=== PATIENT | female | born 1985 | race American Indian/Alaskan Native ===

== ENCOUNTER 2016-09-05 10:53 | Emergency (ER) | payer SELFPAY ==
[2016-09-05 12:21] LABS: Basophils % (Auto) 0.9 % (0.0-1.8); Eosinophils % (Auto) 3.9 % (0.0-4.3); Hemoglobin 12.2 gm/dl (10.1-14.3); Mean Corpuscular HGB Conc 33 % (30-34); Mean Corpuscular Hemoglobin 26 pg (28-32); Mean Corpuscular Volume 80 fl (79-97); Platelet Count 243 K/mm3 (140-440); Red Blood Count 4.64 M/mm3 (3.65-5.03); White Blood Count 7.7 K/mm3 (4.5-11.0)
[2016-09-05 12:43] LABS: Alanine Aminotransferase 15 units/L (7-56); Albumin 3.9 g/dL (3.9-5); Albumin/Globulin Ratio 1.2 %; Alkaline Phosphatase 67 units/L (35-129); Anion Gap 17 mmol/L; BUN/Creatinine Ratio 18.75; Bilirubin,Total < 0.2 mg/dL (0.1-1.2); Blood Urea Nitrogen 15 mg/dL (7-17); Calcium 8.7 mg/dL (8.4-10.2); Carbon Dioxide 25 mmol/L (22-30); Chloride 103.1 mmol/L (98-107); Glucose 85 mg/dL (65-100); Lipase 40 units/L (13-60); Potassium 4.6 mmol/L (3.6-5.0); Sodium 140 mmol/L (137-145); Total Protein 7.2 g/dL (6.3-8.2)
[2016-09-05 15:51] LABS: Bilirubin,Urine NEG (Negative); Blood,Urine NEG (Negative); Ketones,Urine NEG (Negative); Leukocyte Esterase,Urine NEG (Negative); Mucus,Urine FEW /HPF; Nitrite,Urine NEG (Negative); Protein,Urine <15 mg/dL mg/dL (Negative); Urobilinogen,Urine < 2.0 mg/dL (<2.0)
[2016-09-05] MEDS ORDERED: NACL 0.9% 1000 ML 1,000 ML IV ONE (16:02)
[2016-09-05] MEDS ORDERED: TORADOL IV ONE (16:02)
[2016-09-05] MEDS ORDERED: NACL ONE (16:13)
[2016-09-05] MEDS ORDERED: BENADRYL ONE (16:21)
[2016-09-05] MEDS ORDERED: BENADRYL IV ONE (16:23)
--- NOTE | 2016-09-05 17:27 | Cat Scan Report ---
FINAL REPORT EXAM: CT ABDOMEN PELVIS W CON HISTORY: rlq pain TECHNIQUE: Serial axial images through the abdomen and pelvis during intravenous administration of contrast with coronal and sagittal reconstruction. PRIORS: None. FINDINGS: There is subtle heterogeneous density in the distal aspect of esophagus. Visualized portion of the lung bases are clear. No pleural effusion is seen. No focal hepatic lesion is identified. The gallbladder, pancreas, spleen and adrenal glands appear within normal limits. Kidneys appear normal. Bladder appears normal. No gross abnormality is seen in uterus. There appears to be a collapsing cyst in the left ovary. The appendix appears normal. No gross bowel abnormality is identified. Trace amount of low-density free fluid is seen in the dependent portion of the pelvis. Degenerative changes are seen in the spine. IMPRESSION: 1. Appendix appears within normal limits. 2. There appears to be a collapsing cyst in the left ovary. 3. Small amount of low-density free fluid is seen in the dependent portion of the pelvis. This is a nonspecific finding. It may be physiologic. 4. Subtle heterogeneous density is noted in the lumen of the distal esophagus. This could indicate reflux.
--- NOTE | 2016-09-05 18:12 | Emergency Department Report ---
ED General Adult HPI - General Chief complaint: Abdominal Pain Stated complaint: R SIDE AND LOWER BACK PAIN Time Seen by Provider: 09/05/16 15:12 Source: patient Mode of arrival: Ambulatory Limitations: No Limitations - History of Present Illness Initial comments: 30 year old female presents with right sided flank pain and RLQ pain with associated nausea since last night. states that it is an aching pain. denies fever, sore throat, cough, cp, sob. denies taking medication. Severity scale (0 -10): 7 - Related Data Previous Rx's Medication Instructions Recorded Last Taken Type Ibuprofen [Motrin] 800 mg PO Q8HR PRN #20 tablet 09/05/16 Unknown Rx Ondansetron [Zofran Odt] 4 mg PO Q8HR #14 tab.rapdis 09/05/16 Unknown Rx Allergies Allergy/AdvReac Type Severity Reaction Status Date / Time iodine AdvReac Rash Verified 09/05/16 11:41 ED Review of Systems ROS: Stated complaint: R SIDE AND LOWER BACK PAIN Other details as noted in HPI Constitutional: denies: chills, fever Eyes: denies: eye pain, eye discharge, vision change ENT: denies: ear pain, throat pain Respiratory: denies: cough, shortness of breath, wheezing Cardiovascular: denies: chest pain, palpitations Endocrine: no symptoms reported Gastrointestinal: abdominal pain, nausea. denies: diarrhea Genitourinary: denies: urgency, dysuria, discharge Musculoskeletal: denies: back pain, joint swelling, arthralgia Skin: denies: rash, lesions Neurological: denies: headache, weakness, paresthesias Psychiatric: denies: anxiety, depression Hematological/Lymphatic: denies: easy bleeding, easy bruising ED Past Medical Hx - Past Medical History Additional medical history: PCOS - Surgical History Additional Surgical History: X 2. T & A. SWEAT GLANDS REMOVED - Medications Home Medications: Home Medications Medication Instructions Recorded Confirmed Last Taken Type Ibuprofen [Motrin] 800 mg PO Q8HR PRN #20 tablet 09/05/16 Unknown Rx Ondansetron [Zofran Odt] 4 mg PO Q8HR #14 tab.rapdis 09/05/16 Unknown Rx ED Physical Exam - General Limitations: No Limitations General appearance: alert, in no apparent distress - Head Head exam: Present: atraumatic, normocephalic - Eye Eye exam: Present: normal appearance - ENT ENT exam: Present: mucous membranes moist - Neck Neck exam: Present: normal inspection - Respiratory Respiratory exam: Present: normal lung sounds bilaterally. Absent: respiratory distress - Cardiovascular Cardiovascular Exam: Present: regular rate, normal rhythm. Absent: systolic murmur, diastolic murmur, rubs, gallop - GI/Abdominal GI/Abdominal exam: Present: soft, tenderness (RLQ), normal bowel sounds, other ( right CVA tenderness). Absent: distended, guarding, rebound, rigid - Extremities Exam Extremities exam: Present: normal inspection - Back Exam Back exam: Present: normal inspection - Neurological Exam Neurological exam: Present: alert, oriented X3 - Psychiatric Psychiatric exam: Present: normal affect, normal mood - Skin Skin exam: Present: warm, dry, intact, normal color. Absent: rash ED Course Vital Signs 09/05/16 11:41 Temperature 98.1 F Pulse Rate 71 Respiratory 19 Rate Blood Pressure 120/81 O2 Sat by Pulse 97 Oximetry ED Medical Decision Making - Lab Data Result diagrams: 09/05/16 12:08 09/05/16 12:08 Vital Signs 09/05/16 11:41 Temperature 98.1 F Pulse Rate 71 Respiratory 19 Rate Blood Pressure 120/81 O2 Sat by Pulse 97 Oximetry Laboratory Results - last 24 hr 09/05/16 09/05/16 09/05/16 12:08 12:08 12:08 WBC 7.7 RBC 4.64 Hgb 12.2 Hct 37.0 MCV 80 MCH 26 L MCHC 33 RDW 14.0 Plt Count 243 Lymph % (Auto) 28.6 [place] % (Auto) 6.6 Eos % (Auto) 3.9 Baso % (Auto) 0.9 Lymph # 2.2 [place] # 0.5 Eos # 0.3 Baso # 0.1 Seg Neutrophils % 60.0 Seg Neutrophils # 4.6 Sodium 140 Potassium 4.6 Chloride 103.1 Carbon Dioxide 25 Anion Gap 17 BUN 15 Creatinine 0.8 Estimated GFR > 60 BUN/Creatinine Ratio 18.75 Glucose 85 Calcium 8.7 Total Bilirubin < 0.2 AST 13 ALT 15 Alkaline Phosphatase 67 Total Protein 7.2 Albumin 3.9 Albumin/Globulin Ratio 1.2 Lipase 40 HCG, Qual Negative Urine Color Urine Turbidity Urine pH Ur Specific [place] Urine Protein Urine Glucose (UA) Urine Ketones Urine Blood Urine Nitrite Urine Bilirubin Urine Urobilinogen Ur Leukocyte Esterase Urine WBC (Auto) Urine RBC (Auto) U Epithel Cells (Auto) Urine Mucus 09/05/16 15:15 WBC RBC Hgb Hct MCV MCH MCHC RDW Plt Count Lymph % (Auto) [place] % (Auto) Eos % (Auto) Baso % (Auto) Lymph # [place] # Eos # Baso # Seg Neutrophils % Seg Neutrophils # Sodium Potassium Chloride Carbon Dioxide Anion Gap BUN Creatinine Estimated GFR BUN/Creatinine Ratio Glucose Calcium Total Bilirubin AST ALT Alkaline Phosphatase Total Protein Albumin Albumin/Globulin Ratio Lipase HCG, Qual Urine Color Yellow Urine Turbidity Cloudy Urine pH 6.0 Ur Specific [place] 1.024 Urine Protein <15 mg/dl Urine Glucose (UA) Neg Urine Ketones Neg Urine Blood Neg Urine Nitrite Neg Urine Bilirubin Neg Urine Urobilinogen < 2.0 Ur Leukocyte Esterase Neg Urine WBC (Auto) 2.0 Urine RBC (Auto) 3.0 U Epithel Cells (Auto) 29.0 H Urine Mucus Few - Radiology Data interpreted by me: patient CT abdomen pelvis is negative. NAD at this time. - Medical Decision Making negative CT. states relief with medication in the ED. VSS for DC. - Differential Diagnosis appendicitis, kidney stone Critical care attestation.: If time is entered above; I have spent that time in minutes in the direct care of this critically ill patient, excluding procedure time. ED Disposition Clinical Impression: Right flank pain, RLQ abdominal pain, Unspecified abdominal pain Disposition: DISCHARGED TO HOME OR SELFCARE Is pt being admited?: No Does the pt Need Aspirin: No Condition: Good Instructions: Abdominal Pain (ED) Prescriptions: Ibuprofen [Motrin] 800 mg PO Q8HR PRN #20 tablet PRN Reason: Pain Ondansetron [Zofran Odt] 4 mg PO Q8HR #14 tab.rapdis Referrals: PRIMARY CARE, [Primary Care Provider] - 3-5 Days Forms: Work/School Release Form(ED) Time of Disposition: 18:13
[2016-09-05 18:47] VITALS: BP 113/61
== END 2016-09-05 18:40 | disposition home or self-care (01) ==
LOC: ED 10:53
DX: R10.31 Right lower quadrant pain (principal); E28.2 Polycystic ovarian syndrome; Z88.8 Allergy status to other drugs, medicaments and biological substances
CPT/HCPCS: 36415; 74177; 80053; 81001; 83690; 84703; 85025; 96361; 96374; 96375; 99284; J1200; J1885; J7030; Q9967; 96366

== ENCOUNTER 2019-07-02 21:20 | Emergency (ER) | payer SELFPAY ==
[2019-07-02 21:29] VITALS: BP 133/78
[2019-07-03] MEDS ORDERED: SODIUM CHLORIDE 0.9% 1000 ML 1,000 ML IV ONE (00:49)
--- NOTE | 2019-07-03 00:53 | Emergency Department Report ---
ED Headache HPI - General Chief Complaint: Headache Stated Complaint: HEADACHE NAUSEA Time Seen by Provider: 07/03/19 00:10 - History of Present Illness Initial Comments: 33-year-old -[place] female patient complains of headache 3 days. She states the headache is frontal in feels like a pressure. She admits to history of migraines about 6 years ago for which she saw neurology and had steroid injections resolved her migraines. She states this does not feel like her past migraines in his concern for something more. She rates her pain as a 9/10 in severity. She denies any vision changes, numbness/tingling, sensitivity to light or sound, head injury, or nausea/vomiting. Patient states ibuprofen and Tylenol are not helping and headache worsened today. Timing/Duration: constant, increasing Quality: severe, pressure Head Injury Location: global Recent Head Trauma: no recent headache/trauma Associated Symptoms: denies symptoms Allergies/Adverse Reactions: Allergies iodine Adverse Reaction (Verified 09/05/16 11:41) Rash Home Medications: Ambulatory Orders Ibuprofen [Motrin] 800 mg PO Q8HR PRN #20 tablet 09/05/16 Ondansetron [Zofran Odt] 4 mg PO Q8HR #14 tab.rapdis 09/05/16 Butalb/Acetaminophen/Caffeine [Fioricet 50-300-40 mg CAP] 1 cap PO Q8HR PRN #6 cap 07/03/19 ED Review of Systems ROS: Stated complaint: HEADACHE NAUSEA Other details as noted in HPI Comment: All other systems reviewed and negative Neurological: as per HPI ED Past Medical Hx - Past Medical History Previous Medical History?: Yes Hx Headaches / Migraines: Yes Additional medical history: PCOS - Surgical History Additional Surgical History: X 2. T & A. SWEAT GLANDS REMOVED - Social History Smoking Status: Never Smoker Substance Use Type: None - Medications Home Medications: Home Medications Medication Instructions Recorded Confirmed Last Taken Type Ibuprofen [Motrin] 800 mg PO Q8HR PRN #20 tablet 09/05/16 Unknown Rx Ondansetron [Zofran Odt] 4 mg PO Q8HR #14 tab.rapdis 09/05/16 Unknown Rx Butalb/Acetaminophen/Caffeine 1 cap PO Q8HR PRN #6 cap 07/03/19 Unknown Rx [Fioricet 50-300-40 mg CAP] ED Physical Exam - General Limitations: No Limitations General appearance: alert, in no apparent distress - Head Head exam: Present: atraumatic, normocephalic - Eye Eye exam: Present: normal appearance, PERRL. Absent: scleral icterus - Neck Neck exam: Present: normal inspection. Absent: tenderness - Respiratory Respiratory exam: Present: normal lung sounds bilaterally. Absent: respiratory distress - Cardiovascular Cardiovascular Exam: Present: regular rate, normal rhythm. Absent: systolic murmur, diastolic murmur, rubs, gallop - Extremities Exam Extremities exam: Present: full ROM - Neurological Exam Neurological exam: Present: alert, oriented X3, CN II-XII intact, normal gait. Absent: motor sensory deficit - Expanded Neurological Exam Expanded Speech: Present: fluid speech Cerebellar function: Finger to Nose: Normal, Heel to [place]: Normal, [place]: Normal Upper motor neuron: Pronator Drift: Normal Sensory exam: Upper Extremity Light Touch: Normal, Lower Extremity Light Touch: Normal Motor strength exam: RUE: 5, LUE: 5, RLE: 5, LLE: 5 - Psychiatric Psychiatric exam: Present: normal affect, normal mood - Skin Skin exam: Present: warm, dry, intact, normal color. Absent: rash ED Course Vital Signs 07/02/19 07/03/19 07/03/19 21:26 02:58 04:01 Temperature 98.4 F Pulse Rate 81 80 Respiratory 14 18 16 Rate Blood Pressure 133/78 O2 Sat by Pulse 97 100 Oximetry ED Medical Decision Making - Lab Data Result diagrams: 07/03/19 00:54 07/03/19 00:54 Lab Results 07/03/19 07/03/19 07/03/19 Range/Units 00:54 00:54 00:54 WBC 7.7 (4.5-11.0) K/mm3 RBC 4.63 (3.65-5.03) M/mm3 Hgb 12.3 (10.1-14.3) gm/dl Hct 37.3 (30.3-42.9) % MCV 81 (79-97) fl MCH 26 L (28-32) pg MCHC 33 (30-34) % RDW 14.4 (13.2-15.2) % Plt Count 261 (140-440) K/mm3 Lymph % (Auto) 24.3 (13.4-35.0) % [place] % (Auto) 5.8 (0.0-7.3) % Eos % (Auto) 2.6 (0.0-4.3) % Baso % (Auto) 0.6 (0.0-1.8) % Lymph # 1.9 (1.2-5.4) K/mm3 [place] # 0.4 (0.0-0.8) K/mm3 Eos # 0.2 (0.0-0.4) K/mm3 Baso # 0.0 (0.0-0.1) K/mm3 Seg Neutrophils % 66.7 (40.0-70.0) % Seg Neutrophils # 5.2 (1.8-7.7) K/mm3 Sodium 140 (137-145) mmol/L Potassium 4.4 (3.6-5.0) mmol/L Chloride 105.5 (98-107) mmol/L Carbon Dioxide 28 (22-30) mmol/L Anion Gap 11 mmol/L BUN 15 (7-17) mg/dL Creatinine 0.7 (0.7-1.2) mg/dL Estimated GFR > 60 ml/min BUN/Creatinine Ratio 21 % Glucose 94 (65-100) mg/dL Calcium 9.0 (8.4-10.2) mg/dL Total Bilirubin < 0.20 (0.1-1.2) mg/dL AST 13 (5-40) units/L ALT 13 (7-56) units/L Alkaline Phosphatase 82 (35-129) units/L Total Protein 7.3 (6.3-8.2) g/dL Albumin 4.1 (3.9-5) g/dL Albumin/Globulin Ratio 1.3 % HCG, Qual Negative (Negative) - Radiology Data Radiology results: report reviewed CT head without contrast INDICATION : Headache without trauma. TECHNIQUE: Axial imaging performed from the skull apex through the skull base without the use of contrast. All CT examinations performed at this facility utilize dose modulation, iterative reconstruction or weight-based dosing, when appropriate, to reduce radiation dose to as low as reasonably achievable. COMPARISON: None FINDINGS: No acute intracranial hemorrhage or parenchymal abnormality. Ventricles are normal in size and appear symmetric. Soft tissues including the orbits appear normal. No acute osseous abnormality. Sinuses and mastoid air cells are clear. IMPRESSION: No acute abnormality. - Medical Decision Making 33-year-old -[place] female presents with headache for the past 3 days. She admits to history of migraines that resolved after steroid injections by a neurologist 6 years ago. She denies any head trauma. Neuro exam is normal. Labs are without acute findings. CT head is without acute findings. Migraine cocktail given. Headache resolved. Recommend patient follow up with neurology outpatient. Critical care attestation.: If time is entered above; I have spent that time in minutes in the direct care of this critically ill patient, excluding procedure time. ED Disposition Clinical Impression: Headache syndrome Disposition: DC-01 TO HOME OR SELFCARE Is pt being admited?: No Condition: Stable Instructions: Acute Headache (ED) Prescriptions: Butalb/Acetaminophen/Caffeine [Fioricet 50-300-40 mg CAP] 1 cap PO Q8HR PRN #6 cap PRN Reason: Headache Referrals: PRIMARY CARE, [Primary Care Provider] - 3-5 Days ERIN GRISSOM MD [Staff Physician] - 3-5 Days Forms: Accompanied Note, Work/School Release Form(ED)
[2019-07-03 01:11] LABS: Basophils % (Auto) 0.6 % (0.0-1.8); Eosinophils # (Auto) 0.2 K/mm3 (0.0-0.4); Eosinophils % (Auto) 2.6 % (0.0-4.3); Hematocrit 37.3 % (30.3-42.9); Hemoglobin 12.3 gm/dl (10.1-14.3); Lymphocytes # (Auto) 1.9 K/mm3 (1.2-5.4); Lymphocytes % (Auto) 24.3 % (13.4-35.0); Mean Corpuscular HGB Conc 33 % (30-34); Mean Corpuscular Volume 81 fl (79-97); Monocytes # (Auto) 0.4 K/mm3 (0.0-0.8); Monocytes % (Auto) 5.8 % (0.0-7.3); Platelet Count 261 K/mm3 (140-440); Red Blood Count 4.63 M/mm3 (3.65-5.03); Red Cell Distribution Width 14.4 % (13.2-15.2)
[2019-07-03 01:26] LABS: Alanine Aminotransferase 13 units/L (7-56); Albumin 4.1 g/dL (3.9-5); BUN/Creatinine Ratio 21; Blood Urea Nitrogen 15 mg/dL (7-17); Hemolysis Index 3
--- NOTE | 2019-07-03 01:28 | Cat Scan Report ---
CT head without contrast INDICATION : Headache without trauma. TECHNIQUE: Axial imaging performed from the skull apex through the skull base without the use of con trast. All CT examinations performed at this facility utilize dose modulation, iterative reconstruct ion or weight-based dosing, when appropriate, to reduce radiation dose to as low as reasonably achiev able. COMPARISON: None FINDINGS: No acute intracranial hemorrhage or parenchymal abnormality. Ventricles are normal in si ze and appear symmetric. Soft tissues including the orbits appear normal. No acute osseous abnorm ality. Sinuses and mastoid air cells are clear. IMPRESSION: No acute abnormality. Signer Name: Fabricio Francois MD Signed: 07/03/2019 1:23 AM Workstation Name: [id number]
[2019-07-03] MEDS ORDERED: diphenhydrAMINE 50 MG/ML VIAL IV ONE (02:45)
[2019-07-03] MEDS ORDERED: KETOROLAC 30 MG/1 ML INJ IV ONE (02:45)
[2019-07-03] MEDS ORDERED: dexAMETHasone 20 MG/5 ML VIAL IV ONE (02:45)
[2019-07-03] MEDS ORDERED: METOCLOPRAMIDE 10 MG/2 ML INJ IV ONE (02:45)
== END 2019-07-03 04:01 | disposition home or self-care (01) ==
LOC: ED 21:20
DX: G44.89 Other headache syndrome (principal); G43.909 Migraine, unspecified, not intractable, without status migrainosus; E28.2 Polycystic ovarian syndrome; Z98.890 Other specified postprocedural states; Z79.899 Other long term (current) drug therapy; Z88.4 Allergy status to anesthetic agent
CPT/HCPCS: 36415; 70450; 80053; 84703; 85025; 96374; 96375; 99284; J1100; J1200; J1885; J2765; J7030